=== PATIENT | female | born 1970 | race Hispanic/Latino ===

== ENCOUNTER 2017-05-13 16:05 | Emergency (ER) | payer OTHER ==
[~2017-05-13] VITALS: Ht 162.6 cm; Wt 78.9 kg
--- NOTE | 2017-05-13 17:38 | RADIOLOGY REPORT ---
EXAMINATION: XR HAND, LEFT CLINICAL INFORMATION: Stable stuck in the hand COMPARISON: None TECHNIQUE: PA, lateral, and oblique views of the left hand. FINDINGS: Metallic staple present over the proximal third metacarpal at the dorsum of the hand. No focal bone abnormality. No fracture or dislocation. Joint spaces are normal. IMPRESSION: Metallic staple in the dorsum of the hand. No acute osseous abnormality
--- NOTE | 2017-05-13 18:20 | ED UPPER/LOWER EXTREMITY COMPL ---
History of Present Illness General Chief Complaint: Upper Extremity Injury Stated Complaint: LEFT HAND WITH STAPLE IN IT X SEVERAL MINUTES Source: patient Exam Limitations: no limitations Vital Signs & Intake/Output Vital Signs & Intake/Output Vital Signs Date Time Temp Pulse Resp B/P B/P Pulse O2 O2 Flow FiO2 Mean Ox Delivery Rate 05/13 1846 97.1 81 19 129/80 98 Room Air 05/13 1610 97.1 86 18 132/79 97 Room Air Allergies Coded Allergies: No Known Allergies (05/13/17) Reconcile Medications Augmentin (Augmentin 500-125 Tablet) 500 MG-125 MG TABLET 1 TAB PO BID PRN FOREIGN BODY OF HAND Triage Note: 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 NO BLEEDING . MEDICATED WITH MOTRIN Triage Nurses Notes Reviewed? yes Onset: Abrupt Duration: constant Timing: single episode today Severity: severe Severity Numbers: 7 Pain/Injury Location: Left: Hand. HPI: Patient is a 46-year-old female with an unremarkable past medical history who presented to emergency room with concerns of using a staple gun and accidentally embedding a staple to her right dorsal aspect of her hand earlier this evening, patient's tetanus is unknown. Bleeding was controlled prior to arrival patient is complaining of 5-10 left localized hand pain. Past History Travel History Traveled to [place] past 21 day No Medical History Any Pertinent Medical History? 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 No Review of Systems Review of Systems Constitutional: Reports: no symptoms. EENTM: Reports: no symptoms. Respiratory: Reports: no symptoms. Cardiovascular: Reports: no symptoms. Gastrointestinal/Abdominal: Reports: no symptoms. Genitourinary: Reports: no symptoms. Musculoskeletal: Reports: see HPI. Skin: Reports: see HPI. Neurological/Psychological: Reports: no symptoms. Hematologic/Endocrine: Reports: see HPI, bleeding. Immunological: Reports: no symptoms. All Other Systems: Reviewed and Negative Physical Exam Physical Exam General Appearance: no apparent distress, alert, comfortable Head: atraumatic Eyes: Bilateral: normal appearance. Ears, Nose, Throat: hearing grossly normal Neck: normal inspection Cardiovascular/Respiratory: no respiratory distress Peripheral Pulses: 2+ radial (L) Neurologic/Tendon: normal sensation, normal motor functions, normal tendon functions, responds to pain, no evidence tendon injury, no pulse deficit Diagram Hands Back 1) Noted indwelling staple with no surrounding erythema and warmth moderate point tenderness no active bleeding Dermatomes intact CAPILLARY refill less than 2 seconds mild decreased active range of motion with academic advisor strength Progress Differential Diagnosis: arterial insufficiency, compartment syndrome, contusion, dislocation, DVT, fracture, gout, septic arthritis, sprain, tendon injury Plan of Care: Patient on initial presentation was resting complete bedside tetanus was updated patient does have concerns of subcutaneous staple foreign body in left dorsal aspect of hand, the region was sterilized with Betadine using a proximal 7 mL of 1% lidocaine local anesthesia was performed using sterile pliers the staple was removed successfully and intact patient tolerated well the wound was again cleaned with chlorhexidine and bacitracin was placed bandage was applied. Patient was prophylactically administered antibiotics patient upon discharge looks well no apparent distress and will comply with discharge instructions and had no questions Diagnostic Imaging: Viewed by Me: Radiology Read. Radiology Impression: foreign body seen Comments: PATIENT: ERIC OLMOS PRESENT AGE: 46 PATIENT ACCOUNT NO: [id number] : 69 LOCATION: [facility] ORDERING PHYSICIAN: Chetan Gillespie DO SERVICE DATE: 05/13/17 EXAM TYPE: RAD - XRY-HAND, LEFT EXAMINATION: XR HAND, LEFT CLINICAL INFORMATION: Stable stuck in the hand COMPARISON: None TECHNIQUE: PA, lateral, and oblique views of the left hand. FINDINGS: Metallic staple present over the proximal third metacarpal at the dorsum of the hand. No focal bone abnormality. No fracture or dislocation. Joint spaces are normal. IMPRESSION: Metallic staple in the dorsum of the hand. No acute osseous abnormality DICTATED BY: Juan Sifuentes MD DATE/TIME DICTATED:05/13/171732 EXTERIOR INTERIOR SPECIALIST:LENNY Departure Departure Disposition: HOME OR SELF CARE Condition: Stable Clinical Impression Primary Impression: Foreign body of hand, left Referrals: Tyler STRONG,Carrol Brown (PCP/Family) Additional Instructions: As discussed begin [id number] ibuprofen for pain and inflammation, begin to apply bacitracin to the area once a day with bandage keep area dry and clean YOU can begin the prescription of Augmentin as directed to prevent infection, if symptoms worsen or if YOU develop any new concerning symptoms such as signs of infection redness, pain, swelling, discharge return to emergency room. Prescriptions waiting at [facility] Departure Forms: Customer Survey General Discharge Information Prescriptions: Current Visit Scripts Augmentin (Augmentin 500-125 Tablet) 1 TAB PO BID PRN FOREIGN BODY OF HAND #10 TAB
[2017-05-13 18:46] VITALS: BP 129/80
[2017-05-13] MEDS ORDERED: AUGMENTIN 500-1 EACH PO (18:48)
== END 2017-05-13 19:01 ==
LOC: ERH 16:05
DX: S61.441A Puncture wound with foreign body of right hand, initial encounter (principal); W29.8XXA Contact with other powered hand tools and household machinery, initial encounter; Y93.9 Activity, unspecified; Y92.9 Unspecified place or not applicable
CPT/HCPCS: 73130-LT; 90471; 90714